=== PATIENT | female | born 1950 | race Caucasian/White ===

== ENCOUNTER 2016-10-08 08:47 | Day surgery (SDC) | payer MEDICARE, OTHER ==
[2016-10-08] MEDS ORDERED: Lactated Ringer's 500 ML IV ONE (09:58)
[2016-10-08] MEDS ORDERED: Propofol 10 mg/ml Inj (20 ML) ONE (11:18)
[2016-10-10 15:25] VITALS: O2SAT 100
[2016-10-10 15:31] VITALS: TEMP 96.8
[2016-10-10 15:32] VITALS: BP 100/60; PULSE 79; RESP 18
== END 2016-10-08 12:40 | disposition home or self-care (01) ==
LOC: H.ENDO 08:47
PROVIDERS: ATTEND Internal Medicine Gastroenterology
DX: K29.40 Chronic atrophic gastritis without bleeding (principal); K29.80 Duodenitis without bleeding; Z12.11 Encounter for screening for malignant neoplasm of colon; K64.8 Other hemorrhoids
CPT/HCPCS: 43239; 45378; 88305; 88313; J2001; J2704; J7120